=== PATIENT | female | born 2005 | race Caucasian/White ===

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

== ENCOUNTER 2023-01-30 11:29 | Emergency (ER) | payer OTHER, SELFPAY ==
[2023-01-30 11:57] VITALS: BP 143/91; PULSE 95; RESP 18; TEMP 36.3; O2SAT 100; BMI 25.8
--- NOTE | 2023-01-30 12:23 | ED_ITS ---
HPI - General Adult General Time Seen by Provider: 12:23 Chief complaint: Ear/Nose/Throat Problem Stated complaint: Outer L ear pain Time Seen by Provider: 01/30/23 11:37 Source: patient Mode of arrival: ambulatory Limitations: no limitations History of Present Illness HPI narrative: Patient is a 17 year white female had a hearing placed 5 weeks ago in her left ear. It has overgrown and become reddened. She saw Urgent Care and got an antibiotic. She thinks she is up-to-date on tetanus. She has had no other health problems recently. Related Data Home Medications Medication Instructions Recorded Confirmed isilbloom 1 tab PO DAILY 03/06/22 01/30/23 albuterol sulfate 90 mcg/actuation 2 puff inhalation Q4H PRN wheezing 01/30/23 01/30/23 aerosol inhaler Allergies Allergy/AdvReac Type Severity Reaction Status Date / Time azithromycin [From Zithromax] Allergy Verified 01/30/23 12:04 Review of Systems Status of ROS: Reports: 6 or more systems reviewed and unremarkable except as noted in History and below PFSH [facility] Social History How often do you have a drink containing alcohol: never AUDIT-C Alcohol total score: 0 Non-prescribed substance use: denies use Exam Narrative: Exam Narrative: Objective: Vital signs are unremarkable and slightly elevated blood pressure Left ear shows mild redness erythema, and overgrown hearing and some redness and swelling of the ear lobe. Const: Vital Signs, click to edit/add: Vital Signs - 24 hr 01/30/23 11:57 Temperature 97.4 F L Pulse Rate [Right Pulse Oximeter] 95 Respiratory Rate 18 Blood Pressure [Ri ght Upper Arm] 143/91 H Pulse Oximetry 100 Oxygen Delivery Me thod Room Air Course Vital Signs Vital signs: Initial Vital Signs Temperature 97.4 F L 01/30/23 11:57 Temperature Source Temporal Artery Scan 01/30/23 11:57 Pulse Rate 95 01/30/23 11:57 Respiratory Rate 18 01/30/23 11:57 Blood Pressure 143/91 H 01/30/23 11:57 Blood Pressure Mean 108 H 01/30/23 11:57 Pulse Oximetry 100 01/30/23 11:57 Oxygen Delivery Method Room Air 01/30/23 11:57 Vital Signs Temperature 97.4 F L 01/30/23 11:57 Pulse Rate 95 01/30/23 11:57 Respiratory Rate 18 01/30/23 11:57 Blood Pressure 143/91 H 01/30/23 11:57 Pulse Oximetry 100 01/30/23 11:57 Oxygen Delivery Method Room Air 01/30/23 11:57 Temperature 97.4 F L 01/30/23 11:57 Pulse Rate 95 01/30/23 11:57 Respiratory Rate 18 01/30/23 11:57 Blood Pressure 143/91 H 01/30/23 11:57 Pulse Oximetry 100 01/30/23 11:57 Oxygen Delivery Method Room Air 01/30/23 11:57 Medical Decision Making MDM Narrative Medical decision making narrative: Patient has a infected here and ingrown hearing. Procedure after sterile scrub with Betadine 1% xylocaine used for anesthesia and the stud was easily removed and I was able to push out the head of the stud and pull it out anteriorly and the backing came off posteriorly. I did not make any cuts or other changes. She tolerated this well, good hemostasis noted. Cover with a Band-Aid, complete your antibiotics. Return as needed, would not put an earring back in that spot for least a good week to 10 days Discharge Plan Discharge Clinical Impression: Infection of ear lobe Condition: Improved Additional Instructions: Keep the wound dry for the next several hours, then may bathe or shower, continue the antibiotics she has been given. Return as needed. Activity Level: No Restrictions Discharge Diet: Regular Prescriptions: No Action isilbloom 1 tab PO DAILY albuterol sulfate 90 mcg/actuation HFA aerosol inhaler 2 puff INHALATION Q4H PRN (Reason: wheezing) Follow Up/Referrals: Provider,Not a Local [Primary Care Provider] - Stand Alone [facility]: [facility] Info Inst[facility]
== END 2023-01-30 12:36 | disposition home or self-care (01) ==
PROVIDERS: Emergency Provider Family Medicine
DX: M79.5 Residual foreign body in soft tissue (principal); H60.392 Other infective otitis externa, left ear
CPT/HCPCS: 99282; 99283; 99284